=== PATIENT | male | born 1940 | race Caucasian/White ===

== ENCOUNTER 2024-11-03 16:54 | Emergency (ER) | payer MEDICARE, OTHER ==
[~2024-11-03] VITALS: Ht 152.4 cm; Wt 36.3 kg
[2024-11-03] MEDS ORDERED: ATOR80 PO (17:11)
[2024-11-03] MEDS ORDERED: OMEP20ER PO (17:11)
[2024-11-03] MEDS ORDERED: ASPI81CH PO (17:11)
[2024-11-03] MEDS ORDERED: AMLO5 PO (17:11)
[2024-11-03] MEDS ORDERED: PANT40 PO (17:12)
[2024-11-03] MEDS ORDERED: QUET25 PO (17:12)
[2024-11-03] MEDS ORDERED: Seroquel Xr50 MG PO (17:13)
[2024-11-03] MEDS ORDERED: POTCHL20ER PO (17:13)
[2024-11-03] MEDS ORDERED: ENOX40I (17:14)
[2024-11-03] MEDS ORDERED: CEFAZOLIN2 GM/50 M3 IV (17:15)
[2024-11-03] MEDS ORDERED: NOVOLOG100 UNIT/2 (17:16)
[2024-11-03] MEDS ORDERED: BASAGLAR K100 UNIT/3 SC (17:17)
[2024-11-03] MEDS ORDERED: CeFAZolin Sodium 2,000 MG in NS 100 ML IV ONE (18:35)
== END 2024-11-03 21:42 | disposition home or self-care (01) ==
LOC: ER 16:54
DX: T82.524A Displacement of infusion catheter, initial encounter (principal); E11.51 Type 2 diabetes mellitus with diabetic peripheral angiopathy without gangrene; I10 Essential (primary) hypertension; I25.10 Atherosclerotic heart disease of native coronary artery without angina pectoris; F03.B0 Unspecified dementia, moderate, without behavioral disturbance, psychotic disturbance, mood disturbance, and anxiety; Z89.611 Acquired absence of right leg above knee; Z88.8 Allergy status to other drugs, medicaments and biological substances; Z79.82 Long term (current) use of aspirin; Z79.4 Long term (current) use of insulin; Z79.01 Long term (current) use of anticoagulants; Z79.899 Other long term (current) drug therapy; Z59.89 Other problems related to housing and economic circumstances
CPT/HCPCS: 71045; 96365; 99283-25; J0690